=== PATIENT | male | born 1960 | race Caucasian/White ===

== ENCOUNTER → 2020-09-07 09:37 | Outpatient (CLI) | payer MEDICAID, SELFPAY ==
[2020-08-20 09:23] VITALS: BMI 34.3
--- NOTE | 2020-09-07 11:59 | NEURO_ITS ---
NCS and/or EMG Patient Report Ordering Doctor: Elizabeth Sprague DATE OF SERVICE: 09/07/20 Indication: Numbness and tingling in digits 2-4 of the right hand following a wrist fracture and subsequent splinting. Evaluate for median neuropathy at the wrist. Findings: Nerve conduction studies were performed in the right upper extremity. The right median motor study recording the abductor pollicis brevis showed a normal amplitude, prolonged distal latency and borderline conduction velocity. The right ulnar motor study recording the abductor digiti minimi showed a normal amplitude, normal distal latency and normal conduction velocity. No conduction block or focal slowing was present across the elbow. The right median sensory response recording digit two showed a borderline amplitude, normal latency and borderline conduction velocity. The right ulnar sensory response recording digit five showed a normal amplitude, latency and conduction velocity. The right radial sensory response recording over the extensor snuff box showed a normal amplitude, latency and conduction velocity. Right median-ulnar lumbrical / interosseous motor latencies showed a prolonged median latency compared to the ulnar. Needle EMG of the right upper extremity muscles was performed. No denervation was seen in any muscle. The abductor pollicis brevis muscle revealed motor units that were large amplitude, long duration and mildly polyphasic with normal recruitment. All other examined muscles demonstrated normal motor unit m orphology, activation and recruitment patterns. Impression: This is a mildly abnormal study. 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 The pathophysiology is demyelinating with some evidence of chronic, secondary, axonal loss to the thenar muscles. These findings are consistent with the clinical diagnosis of carpal tunnel syndrome. Christophe Pressley D.O.
== END ==
PROVIDERS: Referring Provider Orthopaedic Surgery; Visit Provider Orthopaedic Surgery
DX: G56.01 Carpal tunnel syndrome, right upper limb (principal)
CPT/HCPCS: 95886; 95910

== ENCOUNTER 2020-12-01 09:04 | Day surgery (SDC) | payer MEDICAID, SELFPAY ==
[2020-11-06 07:05] VITALS: BMI 34.3
[2020-12-01 09:35] VITALS: BP 131/75; PULSE 59; RESP 16; TEMP 37; O2SAT 98; BMI 34.7
[2020-12-01] MEDS: Lactated Ringers 1,000 ML 100 ML IV (09:50)
[2020-12-01] MEDS: Cefazolin 2 GM in 0.9% Normal Saline 100 ML IV (10:16)
[2020-12-01] MEDS: Lidocaine 1% /Epi 1:100 (20ml) 20 ML Vial (10:31)
[2020-12-01] MEDS: MethylPREDNISolone Acetate 40 MG/ML Vial IM (10:43)
[2020-12-01] MEDS: Bupivacaine Mpf 0.5% 30 ML VIAL (10:43)
--- NOTE | 2020-12-01 10:46 | HP.PCM_ITS ---
History and Physical Date of Admission: 12/01/20 Date of Service: 11/06/20 MR#:[id number]: JESSE MÉNDEZ [facility] #:[id number]:1960 Provider:Dr. Niko Lowery DOAge/Sex: 60/M Location:[facility]:Signed Intake Vital Signs 11/06/20 07:05 BMI 34.3 Intake Visit Reasons: right hand Allergies clams Adverse Reaction (Severe, Verified 08/20/20 09:25) vomitting oyster extract Adverse Reaction (Severe, Verified 08/20/20 09:25) Vomitting scallops Adverse Reaction (Severe, Verified 08/20/20 09:25) vomitting Sulfa (Sulfonamide Antibiotics) Adverse Reaction (Severe, Verified 08/20/20 09:25) stomach upset PFSH Medical History (Updated 09/22/20 @ 13:31 by Raven Blackmon) Asthma COPD (chronic obstructive pulmonary disease) DDD (degenerative disc disease) GERD (gastroesophageal reflux disease) History of back pain History of hemorrhoids HTN (hypertension) hx of left arm fracture hx of right wrist fracture hx of tripple bypass Hx Thoracic Fusion Osteoarthritis Social History (Updated 08/20/20 @ 15:[address] Elizabeth Sprague, ) Smoking Status: Former smoker Tobacco: How many years used: 25 alcohol intake: never HPI right hand Details: Parts of this documentation were recorded by a scribe, this documentation accurately reflects the service provided and the decisions made by me, Dr. Niko Lowery DO 11/06/20 0704. JESSE MÉNDEZ is a 60 year old M here today for right carpal tunnel syndrome follow-up. Patient previously treated by Dr. Sprague, with previous EMG 09/07/2020. Dr. Sprague injected right carpal tunnel 09/22/2020. The injection lessened the numbness and tingling in the thumb, index, middle and half of ring finger for about 3 weeks. Pain today on the radial side of his wrist. Today in the office his pain is a 3/10. The pain is sharp at times, but otherwise it is a a dull ache. The pain occasionally radiates up to the elbow but not past. He has a history of a wrist fracture 07/12/2019 - he slipped on ice and he has been having pains and problems with the right hand/wrist ever since. [facility] took care of him and he was in a splint for 8 weeks. Aggravating factors include pushing when standing up. He has not tried ice/heat. He takes Tylenol PRN and this does not help. He takes hydrocodone-acetaminophen for his back, he states he broke 1 vertebrae in his back in 5 years ago, [facility] pain management manges this for him. He has not done formal PT/OT or bracing. He denies DM, inflammatory conditions, blood thinners, chemotherapy. He is right hand dominant. He denies tobacco/ETOH/ drug use. In 2003 he was taking Aleve and got a bleeding ulcer in his small intestine. ROS Const Denies chills and Denies fever(s) ENT Reports neck pain Card Denies dyspnea Resp Denies dyspnea GI Denies nausea and Denies vomiting Musc Denies abnormal gait, Reports arthralgias, Reports back pain, Denies joint swelling, Reports limited range of motion, Reports myalgias, Reports neck pain, Reports numbness, Reports radiating pain into limb and Reports tingling Skin/Breast Denies rash Neuro No abnormal gait, Yes numbness and Yes tingling Ortho Exam General General: Yes no acute distress Neurologic: Yes alert and Yes oriented x3 Psychologic: Yes reasonable and appropriate Right Wrist/Hand Skin/Wound: No Swelling, No Ecchymosis, Yes nail intact and Yes capillary refill normal Contralateral Normal: Yes Right Wrist: Yes ROM-Pronation 0-80, ROM-Supination 0-90 (lacking 15-20 degrees), Durken's Test, Tinel's, Phalen's, CMC Grind and tender to palpate carpometacarpal joint (minimal); No Froment's, Thenar Atrophy or Hypothenar Atrophy Motor: EPL: 5, FDP-2: 5, 1st Dorsal Interosseous: 5 and APB: 5 Sensation: Ulnar: I WRIST: ROM is decreased in flexion, extension, and supination. Slight deformity of forearm from fracture. Positive CMC grind. Strength 5/5. Radial pulse 2/4. Minimal numbness today in office in thumb, index, middle and half of ring finger. Left Wrist/Hand Skin/Wound: No Swelling and No Ecchymosis Supplemental Info 09/07/2020 EMG right upper extremity:This is a mildly abnormal study. 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 The pathophysiology is demyelinating with some evidence of chronic, secondary, axonal loss to the thenar muscles. These findings are consistent with the clinical diagnosis of carpal tunnel syndrome. 08/20/20 Xray right wrist: Chronic fracture deformity of the distal radius and ulnar styloid process. Mild arthrosis of the first carpometacarpal articulation. Educated the patient that his pains, numbness/tingling are multifactorial. His fracture from 06/2019 healed with deformity and that has lead to stiffness. He also has arthritis in his CMC joint and a compressed median nerve as demonstrated on EMG and physical exam findings. He has good relief from the numbness/tingling from the carpal tunnel injection. Discussed options for treatment for carpal tunnel include night bracing or carpal tunnel release. For the arthritis in his hand/wrist options include bracing, injections, or surgery. However, it was explained that surgery would fuse the wrist and decrease his motion. He would like to proceed right open carpal tunnel release and a right radiocarpal wrist injection. Discussed the risks and benefits of surgery and the expected preop, intraop and postop course. Discussed that that he will be called by the doctor of dental surgery with the details. The patient's questions were answered and he is in agreement with the plan. Coding Level of Care Code Off vis,est,level 3 Diagnoses Right carpal tunnel syndrome G56.01 Arthritis of carpometacarpal (CMC) joint of right thumb M18.11 Closed fracture of distal end of right radius with ulna with routine healing S52.501D; S52.601D Assessment and Plan Assessment and Plan (1) Right carpal tunnel syndrome: Status: Acute (2) Arthritis of carpometacarpal (CMC) joint of right thumb: (3) Closed fracture of distal end of right radius with ulna with routine healing: Plan - Dr. Niko Lowery, DO: Educated the patient that his pains, numbness/tingling are multifactorial. His fracture from 06/2019 healed with deformity and that has lead to stiffness. He also has arthritis in his CMC joint and a compressed median nerve as demonstrated on EMG and physical exam findings. He has good relief from the numbness/tingling from the carpal tunnel injection. Discussed options for treatment for carpal tunnel include night bracing or carpal tunnel release. For the arthritis in his hand/wrist options include bracing, injections, or surgery. However, it was explained that surgery would fuse the wrist and decrease his motion. He would like to proceed right open carpal tunnel release and a right radiocarpal wrist injection. Discussed the risks and benefits of surgery and the expected preop, intraop and postop course. Discussed that that he will be called by the doctor of dental surgery with the details. The patient's questions were answered and he is in agreement with the plan. 11/06/20 0938<Electronically signed by Niko Lowery DO>Date Niko Lowery DO 11/06/20 0944<Electronically signed by Merissa CROWDER>Cosigner Signature:Date (if applicable)Merissa Navarro I have re-examined the patient. There are no clinical changes since date of exam
--- NOTE | 2020-12-01 10:46 | PCM.DC ---
Discharge Instructions Dressing / Incision Additional Dressing/Incision Instructions:: Ice and elevate operative extremity next 72 hours. Keep dressing on clean and dry for 48 hours then may remove and allow warm soapy water to rinse over incision but do not submerge until sutures are out. Then apply bandaid over incision and change daily. encourage finger range of motion. Not lift more than 1/2 pound. Follow Up Care Please Follow Up With: Niko Lowery DO When: 2 weeks Test Results: Test results from this visit will be discussed in further detail at your follow-up appointment, if applicable. Discharge Plan Admission Attending Provider: Niko Lowery Primary Care Provider: Chandni Irizarry Discharge Orders/Prescriptions Prescriptions: New oxycodone 5 mg tablet 5 mg PO Q4H PRN (Reason: pain) 5 Days Qty: 20 RF: 0 Discontinued hydrocodone-acetaminophen 7.5-325 mg tablet 1 tablet PO PRN PRN (Reason: Pain) RF: 0 No Action ergocalciferol (vitamin D2) 1,250 mcg (50,000 unit) capsule 50,000 capsule PO FR RF: 0 methocarbamol 750 mg tablet 750 mg PO TID RF: 0 lisinopril 40 mg tablet 40 mg PO DAILY RF: 0 hydrochlorothiazide 25 mg tablet 25 mg PO DAILY RF: 0 amlodipine 10 mg tablet 10 mg PO DAILY RF: 0 carvedilol 25 mg tablet 25 mg PO BID RF: 0 omeprazole 40 mg capsule,delayed release(DR/EC) 40 mg PO DAILY RF: 0 nitroglycerin 0.4 mg tablet, sublingual 0.4 mg SL PRN PRN (Reason: CP) RF: 0 potassium chloride 20 mEq tablet,ER particles/crystals 20 meq PO DAILY RF: 0 atorvastatin 40 mg Tablet 40 mg PO QHS RF: 0 Referrals / Follow Up: Chandni Irizarry DO [Primary Care Provider] - Disposition Disposition (needs filled in before D/C Order can be placed): Home, Self Care
--- NOTE | 2020-12-01 10:49 | PCM.OPRPT ---
Report of Operation Date of Procedure: 12/01/20 Description of Surgical Findings:: Preoperative diagnosis; right carpal tunnel syndrome Postoperative diagnosis; same Procedure: Right open carpal tunnel release Anesthesia: Local with MAC Tourniquet time; [14] minutes 250 mm Hg Complications: None Indication for procedure; This is a 60-year-old male with long-standing symptoms consistent with carpal tunnel syndrome the patient did have electrodiagnostic evidence of this and has failed conservative treatment. Risks benefits and alternatives were reviewed including risks of bleeding infection nerve artery tissue damage need for further surgery and continued pain and symptoms, hypersensitivity to scar and Pillar pain. Procedure; The patient was met in the preoperative holding area the operative extremity was identified by both patient and physician and was marked the patient was met by anesthesia and brought back to the operating room and transferred to the operating table in the supine position. Aanesthesia was started. A well-padded tourniquet was placed on the operative upper extremity. The patient was prepped and draped in the usual sterile fashion. A timeout was called to ensure the proper patient procedure and extremity were being contemplated. 0.5 percent Marcaine with epinephrine was injected into the incisional area. An Esmarch was used to exsanguinate the extremity. The tourniquet was inflated to 250 mmHg. A midline incision was made with a 15 blade scalpel between the thenar and hypothenar eminence. This was carried down through the skin and subcutaneous tissue. Kaci retractors were then used, a deep blade scalpel was used to make a deep incision in the palmar aponeurosis. The kaci retractors were then placed deep to this and the transverse carpal ligament was identified a perforation was made with a scalpel and a Littler scissors were used to complete the release of the transverse carpal ligament distally under direct visualization with the tips facing ulnarly until the perivascular fat was reached. Then turning our attention proximally using a tension slide technique the proximal extent of the transverse carpal ligament was released . There was noted to be significant hypertrophy of the transverse carpal ligaments. The wound was thoroughly irrigated and was closed with 4-0 nylon vertical mattress stitches. Dressing was applied in the form of xeroform 4 x 4, web roll and an cindy wrap. Tourniquet was let down there is no intraoperative complications patient tolerated the procedure well and was transferred to the PACU. All counts were correct.
[2020-12-01 10:55] VITALS: BP 103/62; BP 131/75; PULSE 62; RESP 18; TEMP 36.7; O2SAT 96
[2020-12-01 11:00] VITALS: BP 109/63; BP 131/75; PULSE 60; RESP 18; O2SAT 93
[2020-12-01 11:05] VITALS: BP 107/61; BP 131/75; PULSE 62; RESP 18; O2SAT 97
[2020-12-01 11:10] VITALS: BP 114/72; BP 131/75; PULSE 60; RESP 18; TEMP 36.2; O2SAT 93
[2020-12-01 11:51] VITALS: BP 131/75
== END 2020-12-01 11:52 | disposition home or self-care (01) ==
LOC: SDC 09:05 → AC 09:05
PROVIDERS: PCP Family Medicine; Referring Provider Orthopaedic Surgery; Visit Provider Orthopaedic Surgery
PROC: (CPT 64721; principal; 2020-12-01 10:30)
DX: G56.01 Carpal tunnel syndrome, right upper limb (principal); J44.9 Chronic obstructive pulmonary disease, unspecified; K21.9 Gastro-esophageal reflux disease without esophagitis; I10 Essential (primary) hypertension; M18.11 Unilateral primary osteoarthritis of first carpometacarpal joint, right hand; Z87.891 Personal history of nicotine dependence; Z79.899 Other long term (current) drug therapy
CPT/HCPCS: 64721; J7120

== ENCOUNTER 2024-10-08 15:30 | Outpatient (RCR) | payer MEDICARE, MEDICAID, SELFPAY ==
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
--- NOTE | 2024-10-08 16:13 | HP.PTDCSUM ---
Discharge Summary D/C summary: It has been my pleasure to treat JESSE MÉNDEZ referred by Dr. Jason Brenner MD, with the diagnosis of L shoulder pain for a total of 7 visit(s). Discharge Date: 10/08/24 Please see the following information for a summary of their discharge status. Subjective Subjective: Getting better, Full ROM and not much pain. Only has 1/10 intermittent with exercises but not with activity. Dressing and hair without pain. Worked out in yard over weekend and hurt a little bit. HEP: every other with band. No scheduled f/u with doctor Pain L shouldeer: Pain Intensity (Out of 10): 0 Overall Improvement % Improvement: 90 Objective Objective/Function: Full and symmetrical AROM L to R g-h motion. strength is symmetrical at 4/5 without pain. Overall good progress. Goals Goal 1:: I appropriate HEP to limit future problems Goal Progress: Goal Met Goal 2:: Pain 1/10 at worst adn 80% better. Goal Progress: Goal Met Goal 3:: quickdash score 15 or better Goal Progress: Goal Met Goal 4:: Sleep without discomfort Goal Progress: Goal Met Plan Plan: d/c to HEP D/C Information d/c sentence: If there are questions or concerns regarding this patient's physical therapy, please feel free to call me at [phone]. Thank you for the referral of this patient. Sincerely, Kamari Hernandez, DPT, OCS, CSCS Balance/Gait/Functional tests Balance/Special Test Scores Quick DASH Score: 0 Improvement % Improvement: 90
== END 2024-10-08 19:00 | disposition home or self-care (01) ==
LOC: PT 15:30
PROVIDERS: PCP Family Medicine; Referring Provider Orthopaedic Surgery Sports Medicine; Visit Provider Orthopaedic Surgery Sports Medicine
DX: M25.512 Pain in left shoulder (principal)
CPT/HCPCS: 97110; 97140; 97161; 97530